=== PATIENT | male | born 1950 | race Caucasian/White ===

== ENCOUNTER 2024-01-28 13:21 | Outpatient (CLI) | payer MEDICARE | END 2024-01-28 13:22 | disposition home or self-care (01) | LOC: CSHRAD 13:21 | PROVIDERS: ATTEND Orthopaedic Surgery | DX: M47.26 Other spondylosis with radiculopathy, lumbar region (principal); M51.16 Intervertebral disc disorders with radiculopathy, lumbar region; I71.43 Infrarenal abdominal aortic aneurysm, without rupture | CPT/HCPCS: 72148 ==